=== PATIENT | male | born 1965 | race Caucasian/White ===

== ENCOUNTER 2020-06-18 20:10 | Inpatient (IN) | payer MEDICAID ==
[~2020-06-18] VITALS: Ht 177.8 cm; Wt 108.6 kg
[2020-06-18 20:28] VITALS: BP 144/91
[2020-06-18 21:22] LABS: BASOPHILS 0.2 % (0-2); EOSINOPHILS 0.6 % (0-7); HEMATOCRIT 43.9 % (42.0-54.0); HEMOGLOBIN 14.4 g/dL (13.5-17.5); IMMATURE GRANULOCYTES 0.3 % (0-5); LYMPHOCYTES 5.9 % (15-50); MCH 26.3 pg (26.0-34.0); MCHC 32.8 g/dL (31.0-37.0); MCV 80.1 fL (80.0-100.0); MEAN PLATELET VOLUME 10.2 fL (7.4-10.4); PLATELET COUNT 220 10x3/uL (130-400); RBC 5.48 10x6/uL (4.20-6.10); RDW 16.7 % (11.5-14.5); WBC 12.4 10x3/uL (4.8-10.8)
[2020-06-18 21:25] VITALS: BP 132/75
[2020-06-18 21:41] LABS: ALBUMIN 3.6 g/dL (3.4-5.0); ANION GAP 9.9 mmol/L (8-16); BILIRUBIN - TOTAL 0.44 mg/dL (0.2-1.3); C-REACTIVE PROTEIN 2.5 mg/dL (0.0-0.9); CARBON DIOXIDE 32.9 mmol/L (21.0-32.0); CREATININE - SERUM 1.1 mg/dL (0.6-1.3); MAGNESIUM - SERUM 1.6 mg/dL (1.8-2.4); PROTEIN - SERUM 7.5 g/dL (6.4-8.2)
[2020-06-18 21:50] LABS: POTASSIUM - SERUM 2.8 mmol/L (3.5-5.1)
[2020-06-18 22:01] LABS: APTT 25.9 SECONDS (22.8-39.4); INR 1.06 (0.85-1.17); PROTIME 13.7 SECONDS (11.6-15.0)
[2020-06-18 22:03] LABS: D-DIMER-QUANTITATIVE 1.14 ug/mLFEU (0.20-0.54)
[2020-06-18 22:41] LABS: ERYTHROCYTE SEDIMENTATION RATE 14 mm/hr (0-20)
[2020-06-18 23:13] LABS: BILIRUBIN NEGATIVE (NEGATIVE); KETONE NEGATIVE (NEGATIVE); NITRITE NEGATIVE (NEGATIVE); UROBILINOGEN NORMAL mg/dL (< 2)
[2020-06-18 23:15] LABS: BACTERIA MANY HPF (NONE SEEN); EPITHELIAL CELLS 0-5 /hpf (0-5)
[2020-06-18 23:55] VITALS: BP 118/57
[2020-06-18] MEDS ORDERED: NEURONTIN600 MG PO (23:58)
[2020-06-18] MEDS ORDERED: CARAFATE1 G PO (23:59)
[2020-06-19] VITALS (22 sets, daily range): BP systolic 66–130; BP diastolic 31–72
[2020-06-19] MEDS ORDERED: CELEXA20 MG PO
[2020-06-19] MEDS ORDERED: LYRICA150 MG PO (00:01)
[2020-06-19] MEDS ORDERED: POTASSIUM CHLO10 ME1 PO (00:01)
[2020-06-19] MEDS ORDERED: PERCOCET 5-3251 TAB PO (00:02)
[2020-06-19] MEDS ORDERED: LIPITOR20 MG PO (00:02)
[2020-06-19] MEDS ORDERED: FUROSEMIDE20 MG PO (00:03)
[2020-06-19] MEDS ORDERED: CHLORTHALIDONE25 MG PO (00:03)
[2020-06-19] MEDS ORDERED: ASPIRIN81 MG PO (00:04)
[2020-06-19] MEDS ORDERED: REGLAN5 MG PO (00:05)
[2020-06-19] MEDS ORDERED: SEROQUEL50 MG PO (00:05)
[2020-06-19] MEDS ORDERED: CLARITIN 10 MG10 MG PO (00:08)
[2020-06-19] MEDS ORDERED: NORVASC5 MG PO (00:14)
[2020-06-19] MEDS ORDERED: COZAAR50 MG PO (00:15)
[2020-06-19] MEDS ORDERED: STOOL SOFTENER100 M1 PO (00:16)
[2020-06-19 02:07] LABS: BASOPHILS 0.2 % (0-2); EOSINOPHILS 0.5 % (0-7); HEMATOCRIT 44.8 % (42.0-54.0); HEMOGLOBIN 14.2 g/dL (13.5-17.5); IMMATURE GRANULOCYTES 0.5 % (0-5); LYMPHOCYTES 4.8 % (15-50); MCH 25.5 pg (26.0-34.0); MCHC 31.7 g/dL (31.0-37.0); MCV 80.6 fL (80.0-100.0); MEAN PLATELET VOLUME 9.7 fL (7.4-10.4); MONOCYTES 0.2 % (2-11); NEUTROPHILS 93.8 % (40-80); RBC 5.56 10x6/uL (4.20-6.10); RDW 16.9 % (11.5-14.5)
[2020-06-19 02:13] LABS: WBC 4.4 10x3/uL (4.8-10.8)
[2020-06-19 02:14] LABS: PLATELET COUNT 142 10x3/uL (130-400)
[2020-06-19 02:38] LABS: ANION GAP 14.6 mmol/L (8-16); C-REACTIVE PROTEIN 4.2 mg/dL (0.0-0.9); CALCIUM 8.6 mg/dL (8.5-10.1); CARBON DIOXIDE 27.5 mmol/L (21.0-32.0); MAGNESIUM - SERUM 1.3 mg/dL (1.8-2.4); PHOSPHOROUS 1.9 mg/dL (2.5-4.9); POTASSIUM - SERUM 3.1 mmol/L (3.5-5.1)
--- NOTE | 2020-06-19 02:39 | NUR ---
VANCOMYCIN INFUSION COMPLETE AT 0239.
[2020-06-19 02:52] LABS: CREATININE - SERUM 1.4 mg/dL (0.6-1.3)
[2020-06-19 03:14] LABS: ERYTHROCYTE SEDIMENTATION RATE 7 mm/hr (0-20)
--- NOTE | 2020-06-19 03:57 | NUR ---
bp 79/42. T 103 NOTIFIED JANET NEVES APN. ORDERS FOR FLUID BOLUS AND RAPID FLU/COVID.
--- NOTE | 2020-06-19 08:19 | NUR ---
PT RESTING IN POSITION OF COMFORT AND SAFETY, AT THIS TIME. PER RADIOLOGY THE PT NEEDS A 20G IV D/T THE PT NEEDING TO GET A CT WITH IV CONTRAST. NEW IV PLACED. PT GIVEN BREAKFAST TRAY AND PT ASSISTED ONTO BEDPAN AT THIS TIME, PT REPORTED THE NEED TO HAVE A BM.
--- NOTE | 2020-06-19 09:23 | NUR ---
PT TAKEN OFF BED PAIN. HAD BOWEL MOVEMENT X2. PT BRIEF AND LINENS CHANGED.
--- NOTE | 2020-06-19 09:31 | NUR ---
PT TRANSPORTED TO CT AT THIS TIME VIA STRETCHER.
--- NOTE | 2020-06-19 14:31 | NUR ---
LEVOPHED INFUSION COMPLETE
--- NOTE | 2020-06-19 16:21 | NUR ---
FSBS 350
--- NOTE | 2020-06-19 17:28 | NUR ---
PT BRIEF CHANGED AT THIS TIME. VSS. IV INFUSION PATENT WITHOUT SIGN OF INFILTRATION NOTED. IV INFUSING TO RIGHT UPPER ARM. WILL CONTINUE TO MONITOR PATIENT.
--- NOTE | 2020-06-19 19:08 | NUR ---
PT VOIDED 425 ML OF DARK YELLOW URINE INTO URINAL.
--- NOTE | 2020-06-19 19:36 | NUR ---
PT GIVEN JELLO, CHICKEN BROTH AND WATER. PT MOVED UP IN BED AND HEAD OF BED ADJUSTED TO LEVEL OF COMFORT. PT DENIES FURTHER NEEDS AT THIS TIME. CALL LIGHT IN REACH. WILL CONTINUE TO MONITOR.
--- NOTE | 2020-06-19 20:37 | NUR ---
RT AT PT'S BEDSIDE TO ADMINISTER BREATHING TREATMENT
[2020-06-19 20:53] LABS: UDS - AMPHET NEGATIVE QUAL (NEGATIVE); UDS - BARB NEGATIVE QUAL (NEGATIVE); UDS - BENZO NEGATIVE QUAL (NEGATIVE); UDS - COCAINE NEGATIVE QUAL (NEGATIVE); UDS - OPIATE NEGATIVE QUAL (NEGATIVE); UDS - PCP NEGATIVE QUAL (NEGATIVE); UDS - THC NEGATIVE QUAL (NEGATIVE)
--- NOTE | 2020-06-19 21:20 | NUR ---
PT PULLED UP IN BED AND HEAD OF BED ADJUSTED TO LEVEL OF COMFORT. PT DENIES FURTHER NEEDS. CALL LIGHT IN REACH.
--- NOTE | 2020-06-19 22:18 | NUR ---
320 ML OF YELLOW URINE EMPTIED FROM PT'S URINAL. PT AWAKE WATCHING TELEVISION, DENIES ANY NEEDS AT THIS TIME. CALL LIGHT IN REACH. WILL CONTINUE TO MONITOR.
--- NOTE | 2020-06-19 23:44 | NUR ---
PT'S IV IN RIGHT UPPER ARM INFILTRATED, JANET WEBB APRN NOTIFIED. WARM COMPRESS APPLIED TO SITE.
[2020-06-20] VITALS (43 sets, daily range): BP systolic 90–146; BP diastolic 57–85; BMI 34.4
--- NOTE | 2020-06-20 00:21 | NUR ---
PT ASSISTED WITH BEDPAN. PT VOIDED LARGE AMOUNT OF BROWN WATERY STOOL. PT CLEANED, PLACED IN NEW CLEAN GOWN AND BED LINENS CHANGED. PT REPOSITIONED TO RIGHT LATERAL POSITION IN BED. PT DENIES ANY FURTHER NEEDS AT THIS TIME. CALL LIGHT IN REACH. WILL CONTINUE TO MONITOR.
--- NOTE | 2020-06-20 01:36 | NUR ---
ANSWERED PT CALL LIGHT, PT STATES "I FEEL HOT." TEMPERATURE CHECK WAS 100.6. TYLENOL GIVEN PER PRN ORDER FOR FEVER.
--- NOTE | 2020-06-20 02:38 | NUR ---
PT REPOSITIONED TO LEFT LATERAL SIDE IN BED. PT REQUEST TELEVISION AND LIGHTS BE TURNED OFF SO HE CAN REST. PT ON MONITOR AND CALL LIGHT IN REACH.
--- NOTE | 2020-06-20 02:53 | NUR ---
PT'S IV ROCEPHIN FINISHED AT THIS TIME.
--- NOTE | 2020-06-20 03:12 | NUR ---
PT REPOSTIONED TO SUPINE POSITION AND PULLED UP IN BED. PILLOWS PLACED UNDER PT BLE TO ELEVATE FEET. PT DENIES FURTHER NEEDS. PT ON MONITOR AND CALL LIGHT IN REACH.
--- NOTE | 2020-06-20 04:09 | NUR ---
PT'S IV ZITHROMAX FINISHED AT THIS TIME.
[2020-06-20 04:35] LABS: BASOPHILS 0.2 % (0-2); EOSINOPHILS 0.2 % (0-7); HEMATOCRIT 37.9 % (42.0-54.0); IMMATURE GRANULOCYTES 0.6 % (0-5); MCH 25.6 pg (26.0-34.0); MCHC 31.7 g/dL (31.0-37.0); MCV 80.8 fL (80.0-100.0); MEAN PLATELET VOLUME 11.1 fL (7.4-10.4); MONOCYTES 7.5 % (2-11); NEUTROPHILS 83.5 % (40-80); PLATELET COUNT 144 10x3/uL (130-400); RBC 4.69 10x6/uL (4.20-6.10); RDW 17.6 % (11.5-14.5)
[2020-06-20 04:36] LABS: WBC 18.9 10x3/uL (4.8-10.8)
--- NOTE | 2020-06-20 04:47 | NUR ---
PT MOVED FROM ER BED TO INPATIENT BED AND PLACED IN POSITION OF COMFORT. PT TOLERATED WELL, DENIES ANY NEEDS AT THIS TIME. PT ON MONITOR AND CALL LIGHT IN REACH.
[2020-06-20 04:48] LABS: ALBUMIN 2.7 g/dL (3.4-5.0); ANION GAP 9.4 mmol/L (8-16); BILIRUBIN - TOTAL 0.66 mg/dL (0.2-1.3); CALCIUM 7.9 mg/dL (8.5-10.1); CARBON DIOXIDE 28.6 mmol/L (21.0-32.0); CREATININE - SERUM 1.1 mg/dL (0.6-1.3); MAGNESIUM - SERUM 1.8 mg/dL (1.8-2.4); PHOSPHOROUS 1.9 mg/dL (2.5-4.9); PROTEIN - SERUM 6.2 g/dL (6.4-8.2)
--- NOTE | 2020-06-20 05:03 | NUR ---
PT'S LEVOPHED FINISHED, ANOTHER BAG STARTED AT SAME RATE OF 13MCG/MIN FOR CONTINUOUS IV INFUSION PER ODER.
--- NOTE | 2020-06-20 05:55 | NUR ---
PT'S NORMAL SALINE FINISHED AT THIS TIME AND ANOTHER BAG STARTED FOR CONTINUOUS INFUSION AT 75ML/HR PER ORDER.
--- NOTE | 2020-06-20 06:00 | NUR ---
PT REQUESTING PAIN MEDICATION, RATES PAIN 10/10. PT GIVEN ORDERED PRN 4MG MORPHINE IV. DENIES FURTHER NEEDS. PT ON MONITOR. CALL LIGHT IN REACH.
--- NOTE | 2020-06-20 07:00 | NUR ---
PT REPORT FROM NURSE, NO CHANGES NOTED FROM REPORT. PT AWAKES TO NAME AND IS AAOX4, RESP EVEN AND NONLABORED, LUNGS SOUNDS PRESENTS IN ALL [place]AN, DIMINISHED IN THE BASES. HEART RRR, S1,S2, NO MURMURS. CAP REFILL <3 SECONDS, PULSES 2+ BILATERALLY. 2+ EDEMA NOTED TO LOWER LEGS AND FEET. ABD ROUNDED AND SOFT, BS PRESENT X4.
--- NOTE | 2020-06-20 07:03 | NUR ---
PT REPORT FROM TAMMY TRAMMELL
--- NOTE | 2020-06-20 08:00 | NUR ---
PT ASSISTED WITH BREAKFAST TRAY, PT DENIES COMPLIANTS AT THIS TIME
[2020-06-20 10:49] LABS: FERRITIN 402 ng/mL (3-244); LDH 334 U/L (85-227)
[2020-06-20 10:52] LABS: LIPASE 43 U/L (73-393)
--- NOTE | 2020-06-20 11:45 | NUR ---
LEVOPHED STOPPED AT THIS TIME, PT'S B/P STABLE
--- NOTE | 2020-06-20 19:00 | NUR ---
REPORT FROM EILEEN MUNOZ. PT DENIES NEEDS AT THIS TIME.
--- NOTE | 2020-06-20 19:14 | NUR ---
REPORT TO LORIE MUNOZ
--- NOTE | 2020-06-20 19:39 | NUR ---
PT HAD BM X 1 AND PULLED UP IN BED. GIVEN ICE WATER.
--- NOTE | 2020-06-20 21:00 | NUR ---
GIVEN FAN AT THIS TIME. PT STATES THAT HE SLEEPS WITH ONE AT HOME FOR NOISE.
--- NOTE | 2020-06-20 22:19 | NUR ---
PT USED URINAL X 1 450 ML DARK DEIDRE URINE. PT HAD SMALL BM X 1
--- NOTE | 2020-06-21 | NUR ---
RECIEVED TO ROOM FROM ER ALERT AND ORIENTIATED, DENIES PAIN OR NEEDS AT THIS TIME, ORIENTIATED TO ROOM CALL LIGHT IN REACH
[2020-06-21 01:23] VITALS: BP 113/64
[2020-06-21 01:54] VITALS: BP 113/64; Ht 177.8 cm; Wt 108.6 kg
[2020-06-21 05:31] VITALS: BP 109/49
[2020-06-21 05:31] LABS: BASOPHILS 0.2 % (0-2); EOSINOPHILS 1.5 % (0-7); HEMATOCRIT 34.8 % (42.0-54.0); IMMATURE GRANULOCYTES 0.2 % (0-5); LYMPHOCYTES 15.2 % (15-50); MCH 25.5 pg (26.0-34.0); MCHC 31.6 g/dL (31.0-37.0); MCV 80.6 fL (80.0-100.0); MEAN PLATELET VOLUME 10.7 fL (7.4-10.4); NEUTROPHILS 75.9 % (40-80); PLATELET COUNT 131 10x3/uL (130-400); RBC 4.32 10x6/uL (4.20-6.10); RDW 17.3 % (11.5-14.5)
[2020-06-21 05:38] LABS: ALBUMIN 2.5 g/dL (3.4-5.0); ALKALINE PHOSPHATASE 81 U/L (30-120); ALT (SGPT) 27 U/L (10-68); BILIRUBIN - TOTAL 0.49 mg/dL (0.2-1.3); CALCIUM 8.2 mg/dL (8.5-10.1); CARBON DIOXIDE 31.2 mmol/L (21.0-32.0); CHLORIDE - SERUM 101 mmol/L (98-107); CREATININE - SERUM 0.9 mg/dL (0.6-1.3); MAGNESIUM - SERUM 1.9 mg/dL (1.8-2.4); PHOSPHOROUS 1.8 mg/dL (2.5-4.9); PROTEIN - SERUM 6.1 g/dL (6.4-8.2); SODIUM 136 mmol/L (136-145); WBC 10.6 10x3/uL (4.8-10.8); eGFR NON AFRICAN AMERICAN > 90 mL/min (90-120)
[2020-06-21 05:40] LABS: CALC OSMOLALITY 277 mosm/kg (275-300); GLUCOSE 223 mg/dL (74-106); POTASSIUM - SERUM 3.1 mmol/L (3.5-5.1); UREA NITROGEN 10 mg/dL (7-18)
[2020-06-21 06:34] LABS: UDS - AMPHET NEGATIVE QUAL (NEGATIVE); UDS - BARB NEGATIVE QUAL (NEGATIVE); UDS - BENZO NEGATIVE QUAL (NEGATIVE); UDS - COCAINE NEGATIVE QUAL (NEGATIVE); UDS - OPIATE POSITIVE QUAL (NEGATIVE); UDS - PCP NEGATIVE QUAL (NEGATIVE); UDS - THC NEGATIVE QUAL (NEGATIVE)
--- NOTE | 2020-06-21 08:05 | NUR ---
RESTING IN BED, NO DISTRESS NOTED, NPO FOR MRI, REQUESTED BEDPAN FOR BM, IV INFUSING, CONT TO MONITOR SUGARS, O2 PER NC,
[2020-06-21 08:36] VITALS: BP 114/62
[2020-06-21 16:22] VITALS: BP 141/78
--- NOTE | 2020-06-21 19:15 | NUR ---
RECEIVED BEDSIDE REPORT. PT LAYING IN BED, EYES CLOSED, EVEN RESPIRATIONS. PIV TO LEFT FOREARM, PATENT AND INFUSING, NO REDNESS OR SWELLING. O2 NC IN PLACE, AT 2L. BED LOW, RAILS X2. CL IN REACH, WILL CONTINUE TO MONITOR.
--- NOTE | 2020-06-21 20:35 | NUR ---
ASSISTED PT ON TO BEDPAN, BM SMALL AND VERY SOFT, BROWN-GREEN COLORED. CHANGED LININS AND GOWN. EDEMA ON BILAT LOWER LEGS GENERALIZED, BILAT FEET +1 PITTING EDEMA. ABD APPEARS DISTENDED. PT ABLE TO USE BEDSIDE URINAL BUT UNABLE TO AMBULATE AT THIS TIME. BED LOW, RAILS X2. CL IN REACH, WILL CONTINUE TO MONITOR.
[2020-06-21 21:08] VITALS: BP 163/91
--- NOTE | 2020-06-22 02:44 | NUR ---
ASSISTED PT ON TO BEDPAN. SMALL BM, SOFT BROWN-GREEN. PT TOLERATED WELL. BED LOW, RAILS X2. CL IN REACH. WILL CONTINUE TO MONITOR.
--- NOTE | 2020-06-22 03:19 | NUR ---
PT C/O PAIN 05/28, PROVIDED PAIN MEDS PER ORDER. EMPTIED RIGHT CINDI DRAIN 50ML, SEROSANGUINEOUS FLUID. NO FLUID OUTPUT IN LEFT CINDI DRAIN. PT TOLERATED WELL. BED LOW, CL IN REACH.
[2020-06-22 05:30] VITALS: BP 141/73
[2020-06-22 06:12] LABS: ALBUMIN 2.5 g/dL (3.4-5.0); ALKALINE PHOSPHATASE 88 U/L (30-120); ALT (SGPT) 25 U/L (10-68); BILIRUBIN - TOTAL 0.63 mg/dL (0.2-1.3); CALC OSMOLALITY 276 mosm/kg (275-300); CALCIUM 8.5 mg/dL (8.5-10.1); CHLORIDE - SERUM 102 mmol/L (98-107); CREATININE - SERUM 0.8 mg/dL (0.6-1.3); GLUCOSE 227 mg/dL (74-106); MAGNESIUM - SERUM 1.8 mg/dL (1.8-2.4); POTASSIUM - SERUM 3.7 mmol/L (3.5-5.1); PROTEIN - SERUM 6.4 g/dL (6.4-8.2); SODIUM 136 mmol/L (136-145); UREA NITROGEN 8 mg/dL (7-18); eGFR NON AFRICAN AMERICAN > 90 mL/min (90-120)
[2020-06-22 06:13] LABS: BASOPHILS 0.1 % (0-2); EOSINOPHILS 0.6 % (0-7); HEMATOCRIT 35.7 % (42.0-54.0); HEMOGLOBIN 11.5 g/dL (13.5-17.5); IMMATURE GRANULOCYTES 0.4 % (0-5); MCH 25.7 pg (26.0-34.0); MCHC 32.2 g/dL (31.0-37.0); MCV 79.9 fL (80.0-100.0); MEAN PLATELET VOLUME 11.2 fL (7.4-10.4); NEUTROPHILS 74.9 % (40-80); PLATELET COUNT 139 10x3/uL (130-400); RBC 4.47 10x6/uL (4.20-6.10); RDW 17.1 % (11.5-14.5); WBC 8.1 10x3/uL (4.8-10.8)
--- NOTE | 2020-06-22 07:35 | NUR ---
ALERT AND ORIENTED. LUNGS DIMINISHED TO BLL. HEART SOUNDS S1 AND S2 HEARD IN ALL ALBARRAN. BOWEL SOUNDS ACTIVE X 4. IV TO LFA SL PATENT WITHOUT REDNESS. IV TO LFA PATENT WITHOUT REDNESS. DENIES NEEDS. BED LOW. CALL RABAGO AND PERSONAL ITEMS IN REACH. WILL CONTINUE TO MONITOR.
[2020-06-22 09:05] VITALS: BP 140/77
[2020-06-22 12:47] VITALS: BP 153/83
--- NOTE | 2020-06-22 14:17 | NUR ---
Nutrition follow-up: Pt receiving a consistent CHO diet PO Intake 100% of some meals Labs reviewed Pt with multiple BM's Wt: 239# RDN following.
[2020-06-22 15:00] VITALS: BP 176/88
--- NOTE | 2020-06-22 16:04 | NUR ---
PATIENT ASSISTED TO WHEELCHAIR TO WHEEL AROUND UNIT WITH STUDENT.
[2020-06-22 20:31] VITALS: BP 168/80
--- NOTE | 2020-06-22 22:32 | NUR ---
ALERT AND ORENTED ABLE TO VOICE NEEDS AND WANTS TO STAFF. RESTING IN BED WITH NO NEED AT THIS TIME. IV IN PLACE TO LEFT FOREARM WITH NS PER ORDERS. WATER AND CALL LIGHT IN REACH.
[2020-06-23 00:29] VITALS: BP 172/80
[2020-06-23 04:00] VITALS: BP 150/83
[2020-06-23 05:08] LABS: ALBUMIN 2.5 g/dL (3.4-5.0); ALKALINE PHOSPHATASE 86 U/L (30-120); ALT (SGPT) 28 U/L (10-68); BASOPHILS 0.5 % (0-2); BILIRUBIN - TOTAL 0.45 mg/dL (0.2-1.3); CALC OSMOLALITY 278 mosm/kg (275-300); CALCIUM 8.4 mg/dL (8.5-10.1); CHLORIDE - SERUM 101 mmol/L (98-107); CREATININE - SERUM 0.8 mg/dL (0.6-1.3); GLUCOSE 207 mg/dL (74-106); HEMATOCRIT 35.5 % (42.0-54.0); HEMOGLOBIN 11.4 g/dL (13.5-17.5); IMMATURE GRANULOCYTES 1.4 % (0-5); LYMPHOCYTES 27.2 % (15-50); MAGNESIUM - SERUM 1.7 mg/dL (1.8-2.4); MCH 25.4 pg (26.0-34.0); MCHC 32.1 g/dL (31.0-37.0); MCV 79.1 fL (80.0-100.0); MEAN PLATELET VOLUME 10.5 fL (7.4-10.4); MONOCYTES 10.6 % (2-11); NEUTROPHILS 59.3 % (40-80); PROTEIN - SERUM 6.5 g/dL (6.4-8.2); RBC 4.49 10x6/uL (4.20-6.10); SODIUM 137 mmol/L (136-145); UREA NITROGEN 9 mg/dL (7-18); WBC 6.3 10x3/uL (4.8-10.8); eGFR NON AFRICAN AMERICAN > 90 mL/min (90-120)
[2020-06-23 05:10] LABS: PHOSPHOROUS 3.8 mg/dL (2.5-4.9); POTASSIUM - SERUM 3.1 mmol/L (3.5-5.1)
[2020-06-23 05:17] LABS: PLATELET COUNT 174 10x3/uL (130-400)
--- NOTE | 2020-06-23 07:26 | NUR ---
ALERT AND ORIENTED. LUNGS DIMINISHED TO BLL. HEART SOUNDS S1 AND S2 HEARD IN ALL ALBARRAN. BOWEL SOUNDS ACTIVE X 4. IV TO LFA SL PATENT WITHOUT REDNESS. IV TO LFA PATENT WITHOUT REDNESS. +1 PITTING EDEMA TO BILATERAL FEET. DENIES NEEDS. BED LOW. CALL RABAGO AND PERSONAL ITEMS IN REACH. WILL CONTINUE TOMONITOR.
[2020-06-23 08:23] VITALS: BP 174/87
[2020-06-23] MEDS ORDERED: DOXYCYCLINE HY100 M2 PO (09:52)
--- NOTE | 2020-06-23 10:20 | NUR ---
PATIENT OK FOR DISCHARGE PER DR DEL ROSARIO.
[2020-06-23] MEDS ORDERED: NICODERM CQ1 EAC3 TOPICAL (11:01)
--- NOTE | 2020-06-23 11:49 | MORECARE ---
CASE MANAGEMENT DISCHARGE SUMMARY PATIENT: YVONNE MELÉNDEZ UNIT: [id number] ADM DATE: 06/19/20 AGE: 55 : 61 SEX: M ROOM/BED: D.2207 AUTHOR: ROXANN LUNDY PHYSICIAN: REFERRING PHYSICIAN: VINCE SYKES MD DATE OF SERVICE: 06/23/20 Discharge Plan Patient Name: YVONNE MELÉNDEZ Facility: [facility]:[place] : 1965 Planned Disposition: Home Anticipated Discharge Date: Discharge Date: Expected LOS: Initial Reviewer: [email or web address] Initial Review Date: 06/19/2020 Generated: 06/23/20 12:49 pm Patient Name: YVONNE MELÉNDEZ Page [phone] at 1149 All edits/amendments must be made on the electronic document DICTATION DATE: 06/23/20 1149 WIRELINE FIELD OPERATOR: STEFF 06/23/20 1149 RPT#: [id number] DC DATE: STATUS: ADM IN [facility] [address] [place] [address] END OF REPORT
[2020-06-23 11:54] VITALS: BP 175/84
[2020-06-23] MEDS ORDERED: PERFOROMIS20 MCG/21 UPD (11:54)
[2020-06-23] MEDS ORDERED: IPRAT-ALBUT 0.5-3 ML UPD (11:54)
--- NOTE | 2020-06-23 11:56 | MORECARE ---
CASE MANAGEMENT DISCHARGE SUMMARY PATIENT: YVONNE MELÉNDEZ UNIT: [id number] ADM DATE: 06/19/20 AGE: 55 : 61 SEX: M ROOM/BED: D.2207 AUTHOR: ROXANN LUNDY PHYSICIAN: REFERRING PHYSICIAN: VINCE SYKES MD DATE OF SERVICE: 06/23/20 Discharge Plan Patient Name: YVONNE MELÉNDEZ [facility] : 1965 Planned Disposition: Home Anticipated Discharge Date: Discharge Date: Expected LOS: Initial Reviewer: [email or web address] Initial Review Date: 06/19/2020 Generated: 06/23/20 12:56 pm DCPIA - Discharge Planning Initial Assessment Updated by [email or web address]: Briana Wooten on 06/23/20 11:52 am * Is the patient Alert and Oriented? Yes * How many steps to enter\exit or inside your home? * PCP [facility] * [facility] * Preadmission Environment Home with Family * ADLs Partial Dependent * Partial ADLs (Assistance needed) Ambulation Bathing Medication Management Toileting * Equipment Bedside Commode Gee Lift Shower Chair Wheelchair * List name and contact numbers for known caregivers / representatives who currently or will assist patient after discharge: YVETTE MELÉNDEZ [phone] * Verbal permission to speak to the caregivers and representatives has been obtained from the patient. Yes * Community resources currently utilized Advantage Program * Please name any agencies selected above. IS THE METAL HANDLER THROUGH [facility] GIVERS * Additional services required to return to the preadmission environment? Yes * Can the patient safely return to the preadmission environment? Yes * Has this patient been hospitalized within the prior 30 days at any hospital? No Last DP export: 06/23/20 10:49 a Patient Name: YVONNE MELÉNDEZ Page [id number] at 1156 All edits/amendments must be made on the electronic document DICTATION DATE: 06/23/20 1156 FINISHED GOODS STOCK CLERK: STEFF 06/23/20 1156 RPT#: [id number] DC DATE: STATUS: ADM IN [facility] [address] [place] [id number] END OF REPORT
--- NOTE | 2020-06-23 12:04 | MORECARE ---
CASE MANAGEMENT DISCHARGE SUMMARY PATIENT: YVONNE MELÉNDEZ UNIT: [id number] ADM DATE: 06/19/20 AGE: 55 : 61 SEX: M ROOM/BED: D.2207 AUTHOR: KAMRONDOC PHYSICIAN: REFERRING PHYSICIAN: VINCE SYKES MD DATE OF SERVICE: 06/23/20 Discharge Plan Patient Name: YVONNE MELÉNDEZ Facility: [facility]:[place] : 1965 Planned Disposition: Home Anticipated Discharge Date: Discharge Date: Expected LOS: Initial Reviewer: [email or web address] Initial Review Date: 06/19/2020 Generated: 06/23/20 1:03 pm Comments DCP- Discharge Planning Updated by [email or web address]: Briana Wooten on 06/23/20 10:[address] Patient Name: YVONNE MELÉNDEZ Admission Status: ER Accout number: [id number] Admission Date: 06-19-2020 : 1965 Admission Diagnosis:PNEUMONIA, UNSPECIFIED ORGANISM Attending: VINCE SYKES Current LOS: 4 Anticipated DC Date: Planned Disposition: Home Primary Insurance: MEDICAID [place] Discharge Planning Comments: CM met with patient to complete initial dc planning assessment. CM educated patient on the CM role and verbal consent given by patient to complete assessment. Patient lives at home with his where he gets assistance from his . She help him through [facility]. [place] part of the [place] [employer] program. At discharge patient plans to return home and feels this is a safe discharge. CM discussed availability of home health, rehab services, and medical equipment. He has a W/C, BSC, gee lift, shower chair at home. His called me asking about a walker and a nebulizer. She stated that they use [facility] for her DME. I called Erma at [facility] and ordered him a nebulizer. The will pick it up. He did not qualify for home O2, but I ordered an Overnight Pulse Ox to be done. Insurance will not pay for him a walker because he has a wheelchair. I explained this to his and she said that she has a place that she thinks she can get one. Patient denied known discharge needs at this time. CM will continue to follow and will assist as needed with dc plans/needs. Sewing Trimmer: Briana Wooten DCPIA - Discharge Planning Initial Assessment Updated by [email or web address]: Briana Wooten on 06/23/20 11:52 am * Is the patient Alert and Oriented? Yes * How many steps to enter\exit or inside your home? * PCP [facility]ER[facility]ANE * [facility] * Preadmission Environment Home with Family * ADLs Partial Dependent * Partial ADLs (Assistance needed) Ambulation Bathing Medication Management Toileting * Equipment Bedside Commode Gee Lift Shower Chair Wheelchair * List name and contact numbers for known caregivers / representatives who currently or will assist patient after discharge: YVETTE MELÉNDEZ [phone] * Verbal permission to speak to the caregivers and representatives has been obtained from the patient. Yes * Community resources currently utilized Advantage Program * Please name any agencies selected above. IS THE SUPERVISOR [employer] THROUGH [facility] CARE GIVE * Additional services required to return to the preadmission environment? Yes * Can the patient safely return to the preadmission environment? Yes * Has this patient been hospitalized within the prior 30 days at any hospital? No External Providers External Provider: [facility] Next Contact Date: Service Request Date: Service Type: Resolution: Reviewer: Comments: Last DP export: 06/23/20 10:56 a Patient Name: YVONNE MELÉNDEZ Page [phone] at 1204 All edits/amendments must be made on the electronic document DICTATION DATE: 06/23/201202 IMPREGNATING HELPER: STEFF 06/23/201202 RPT#: [id number] DC DATE: STATUS: ADM IN [facility] [address] [place] [address] END OF REPORT
--- NOTE | 2020-06-23 12:37 | NUR ---
DISCHARGE EDUCATION PROVIDED BOTH WRITTEN AND VERBAL. VERBALIZED UNDERSTANDING. DENIES FURTHER QUESTIONS. IV X 2 REMOVED FROM LFA WITH TIPS INTACT. DENIES NEEDS. WAITING RIDE.
--- NOTE | 2020-06-23 12:57 | NUR ---
PATIENT DC HOME WITH ALL BELONGINGS.
--- NOTE | 2020-06-24 09:17 | MORECARE ---
CASE MANAGEMENT DISCHARGE SUMMARY PATIENT: YVONNE MELÉNDEZ UNIT: [id number] ADM DATE: 06/19/20 AGE: 55 : 61 SEX: M ROOM/BED: D.2207 AUTHOR: ROXANN LUNDY PHYSICIAN: REFERRING PHYSICIAN: VINCE SYKES MD DATE OF SERVICE: 06/24/20 Discharge Plan Patient Name: YVONNE MELÉNDEZ Facility: [facility]:[place] : 1965 Planned Disposition: Home Anticipated Discharge Date: Discharge Date: 06/23/2020 Expected LOS: Initial Reviewer: [email or web address] Initial Review Date: 06/19/2020 Generated: 06/24/20 10:17 am Comments DCP- Discharge Planning Updated by [email or web address]: Briana Wooten on 06/23/20 10:[address] Patient Name: YVONNE MELÉNDEZ Admission Status: ER Accout number: [id number] Admission Date: 06-19-2020 : 1965 Admission Diagnosis:PNEUMONIA, UNSPECIFIED ORGANISM Attending: VINCE SYKES Current LOS: 4 Anticipated DC Date: Planned Disposition: Home Primary Insurance: MEDICAID [place] Discharge Planning Comments: CM met with patient to complete initial dc planning assessment. CM educated patient on the CM role and verbal consent given by patient to complete assessment. Patient lives at home with his where he gets assistance from his . She help him through [facility]. [place] of the [place] [employer] [place]. At discharge patient plans to return home and feels this is a safe discharge. CM discussed availability of home health, rehab services, and medical equipment. He has a W/C, BSC, gee lift, shower chair at home. His called me asking about a walker and a nebulizer. She stated that they use [facility] for her DME. I called Erma at [facility] and ordered him a nebulizer. The will pick it up. He did not qualify for home O2, but I ordered an Overnight Pulse Ox to be done. Insurance will not pay for him a walker because he has a wheelchair. I explained this to his and she said that she has a place that she thinks she can get one. Patient denied known discharge needs at this time. CM will continue to follow and will assist as needed with dc plans/needs. Project Management Analyst: Briana Wooten DCPIA - Discharge Planning Initial Assessment Updated by [email or web address]: Briana Wooten on 06/23/20 11:52 am * Is the patient Alert and Oriented? Yes * How many steps to enter\exit or inside your home? * PCP [facility] * [facility] * Preadmission Environment Home with Family * ADLs Partial Dependent * Partial ADLs (Assistance needed) Ambulation Bathing Medication Management Toileting * Equipment Bedside Commode Gee Lift Shower Chair Wheelchair * List name and contact numbers for known caregivers / representatives who currently or will assist patient after discharge: YVETTE MELÉNDEZ [phone] * Verbal permission to speak to the caregivers and representatives has been obtained from the patient. Yes * Community resources currently utilized Advantage Program * Please name any agencies selected above. IS THE ROUTE AIDE THROUGH [facility] CARE GIVERS * Additional services required to return to the preadmission environment? Yes * Can the patient safely return to the preadmission environment? Yes * Has this patient been hospitalized within the prior 30 days at any hospital? No Last DP export: 06/23/20 11:04 a Patient Name: YVONNE MELÉNDEZ Page [phone] at 0917 All edits/amendments must be made on the electronic document DICTATION DATE: 06/24/20916 MANAGER RESORT: STEFF 06/24/20916 RPT#: [id number] DC DATE:06/23/20 STATUS: DIS IN [facility] [address] [place] [address] END OF REPORT
[2020-06-24 13:12] LABS: EHRLICHIA CHAFF IGG Negative (Neg:<1:64); EHRLICHIA CHAFF IGM Negative (Neg:<1:20); HGE IGG TITER Negative (Neg:<1:64); HGE IGM TITER Negative (Neg:<1:20)
[2020-06-25 16:09] LABS: F. TULARENSIS - IGG Negative (Negative); F. TULARENSIS - IGM Negative (Negative)
== END 2020-06-23 12:58 | disposition home or self-care (01) | DRG 871 ==
LOC: D.ER 20:10 → D.MS 06-19 01:01 → D.EDHOLD 06-19 01:01 → D.MS 06-20 22:32
PROVIDERS: Family Medicine; Family Medicine Adult Medicine; ADMIT Family Medicine; ATTEND Family Medicine
DX: A41.9 Sepsis, unspecified organism (principal); J18.9 Pneumonia, unspecified organism; R65.21 Severe sepsis with septic shock; N39.0 Urinary tract infection, site not specified; E87.1 Hypo-osmolality and hyponatremia; F17.203 Nicotine dependence unspecified, with withdrawal; J90 Pleural effusion, not elsewhere classified; K59.00 Constipation, unspecified; E87.6 Hypokalemia; E11.65 Type 2 diabetes mellitus with hyperglycemia; I10 Essential (primary) hypertension; E78.5 Hyperlipidemia, unspecified; F41.8 Other specified anxiety disorders; F31.9 Bipolar disorder, unspecified; M62.3 Immobility syndrome (paraplegic); E66.9 Obesity, unspecified; E83.42 Hypomagnesemia

== ENCOUNTER → 2021-01-26 08:19 | Outpatient (CLI) | payer MEDICAID ==
[2020-06-21 01:54] VITALS: BMI 34.3
[~2021-01-26 08:19] MED LIST: ASPIRIN81 MG PO; CARAFATE1 G PO; CELEXA20 MG PO; CHLORTHALIDONE25 MG PO; CLARITIN 10 MG10 MG PO; COZAAR50 MG PO; DOXYCYCLINE HY100 M2 PO; FUROSEMIDE20 MG PO; IPRAT-ALBUT 0.5-3 ML UPD; LIPITOR20 MG PO; LYRICA150 MG PO; NEURONTIN600 MG PO; NICODERM CQ1 EAC3 TOPICAL; NORVASC5 MG PO; PERCOCET 5-3251 TAB PO; PERFOROMIS20 MCG/21 UPD; POTASSIUM CHLO10 ME1 PO; REGLAN5 MG PO; SEROQUEL50 MG PO; STOOL SOFTENER100 M1 PO
== END | disposition home or self-care (01) ==
LOC: D.MRI 08:19
PROVIDERS: ATTEND Internal Medicine Gastroenterology
DX: R93.5 Abnormal findings on diagnostic imaging of other abdominal regions, including retroperitoneum (principal); K86.9 Disease of pancreas, unspecified

== ENCOUNTER 2021-02-08 11:45 | Day surgery (SDC) | payer MEDICAID ==
[~2021-02-08] VITALS: Ht 177.8 cm; Wt 120.5 kg
[2021-02-08 12:09] LABS: BASOPHILS 1.1 % (0-2); EOSINOPHILS 0.6 % (0-7); HEMATOCRIT 48.9 % (42.0-54.0); LYMPHOCYTES 17.8 % (15-50); MCH 25.3 pg (26.0-34.0); MCHC 32.6 g/dL (31.0-37.0); MCV 77.5 fL (80.0-100.0); MEAN PLATELET VOLUME 8.7 fL (7.4-10.4); NEUTROPHILS 75.5 % (40-80); RBC 6.31 10x6/uL (4.20-6.10); WBC 14.2 10x3/uL (4.8-10.8)
[2021-02-08 12:10] LABS: PLATELET COUNT 286 10x3/uL (130-400)
[2021-02-08 12:15] LABS: CALCIUM 9.4 mg/dL (8.5-10.1); CARBON DIOXIDE 27.2 mmol/L (21.0-32.0); CREATININE - SERUM 1.1 mg/dL (0.6-1.3); POTASSIUM - SERUM 4.2 mmol/L (3.5-5.1)
[2021-02-08 14:22] VITALS: Ht 177.8 cm; Wt 120.5 kg
[2021-02-08] MEDS ORDERED: LANTUS SOL100 UNIT/2 SC (14:42)
[2021-02-08] MEDS ORDERED: HUMALOG 30100 UNITS/ SC (14:43)
--- NOTE | 2021-02-08 15:28 | NUR ---
DR RAM AT BEDSIDE 1541 DC TEACHING COMPLETE TO PT AND CAREGIVER, KAYLIE. ACKNOWLEDGED UNDERSTANDING. 1545 DC'D PIV, CATHETER INTACT. CAREGIVER HELPING PT TO GET DRESSED. 1559 PT DC'D VIA WC ACCOMPANIED BY THIS NURSE TO POV WITH CAREGIVER KAYLIE DRIVING. PT/CAREGIVER HAVE ALL BELONGINGS AND DC PACKET.
--- NOTE | 2021-02-10 06:46 | OP ---
PATIENT NAME: YVONNE MELÉNDEZ MEDICAL RECORD: [id number] :[birth year] LOCATION:[facility] ADMISSION DATE: SURGEON: VALERIA RAM DO DATE OF OPERATION: 02/08/2021 PROCEDURE: EGD with biopsies. INDICATION FOR PROCEDURE: Upper abdominal pain, bloating, nausea. SCOPE: Olympus video gastroscope. MEDICATIONS: Propofol 150 mg IV per anesthesia. ESTIMATED BLOOD LOSS: Minimal. COMPLICATIONS: None. FINDINGS: Informed consent was given. The patient was made comfortable with the above medication. After reaching an adequate level of sedation by slow IV push, the patient was placed on his left side. The endoscope was advanced under direct visualization through the mouth to the second portion of the duodenum with ease. The esophagus appeared normal down to the GE junction. At the GE junction, there was evidence of LA class A reflux-induced esophagitis. Cold forceps biopsies were taken from the mid esophagus. The endoscope was then advanced beyond the GE junction into the stomach and retroflexed to view the cardia and fundus, which appeared normal. The body of the stomach as well as the antrum and prepyloric regions appeared normal. Cold forceps biopsies were taken from the antrum and incisura to submit for histopathology and to rule out the presence of H. pylori. The endoscope was advanced beyond the pylorus into the duodenum, which appeared normal to the second portion. Cold forceps biopsies were randomly taken in the duodenum to submit for histopathology. The endoscope was withdrawn from the patient. The patient tolerated the procedure well and there were no complications. IMPRESSION: 1. LA class A reflux-induced esophagitis. 2. Otherwise, normal upper endoscopy. PLAN AND RECOMMENDATIONS: 1. Discharge home when recovery parameters are met. 2. Follow up biopsy specimen results. 3. GERD diet and reflux precautions. 4. Continue current medications including PPI at 40 mg equivalent daily. 5. We will arrange a gastric emptying scan regarding the patient's symptoms of bloating, nausea, and abdominal pain. 6. Follow up in GI clinic. TRANSINT:[id number] Voice Confirmation ID: [id number] DOCUMENT ID: [id number] OPERATIVE REPORT [id number] YVONNE MELÉNDEZ VALERIA RAM DO at 0646 CC: [id number] DICTATION DATE: 02/08/21 1510 FURNACE CHARGER: 02/10/21 0037 DEP SDC 02/08/21 [facility] [address] [facility]
== END 2021-02-08 15:59 | disposition home or self-care (01) ==
LOC: D.OPS 11:45
PROVIDERS: Anesthesiology; ATTEND Internal Medicine Gastroenterology
DX: R10.10 Upper abdominal pain, unspecified (principal); R14.0 Abdominal distension (gaseous); R11.0 Nausea; K21.00 Gastro-esophageal reflux disease with esophagitis, without bleeding